=== PATIENT | female | born 1990 | race Hispanic/Latino ===

== ENCOUNTER 2016-12-11 20:21 | Emergency (ER) | payer SELFPAY ==
[2016-12-11] MEDS ORDERED: Ketorolac Tromethamine 60 MG/2 ML VIAL ONE (20:36)
[2016-12-11] MEDS ORDERED: Azithromycin 250 MG TAB ONE (20:36)
== END 2016-12-11 20:43 | disposition home or self-care (01) ==
LOC: BURERS 20:21
DX: J01.90 Acute sinusitis, unspecified (principal)
CPT/HCPCS: 96372; J1885

== ENCOUNTER 2017-02-20 08:37 | Emergency (ER) | payer SELFPAY | END 2017-02-20 09:18 | disposition home or self-care (01) | LOC: BURERS 08:37 | DX: B86 Scabies (principal) | CPT/HCPCS: 99282 ==